=== PATIENT | female | born 1985 | race Caucasian/White ===

== ENCOUNTER → 2017-01-27 | Outpatient (REF) | payer OTHER | LOC: M LAB REF 10:12 | PROVIDERS: ATTEND Physician Assistant | DX: J02.9 Acute pharyngitis, unspecified (principal) ==

== ENCOUNTER → 2018-11-26 | Outpatient (REF) | LOC: M LAB LCGH 11:52 | PROVIDERS: ATTEND Obstetrics & Gynecology Reproductive Endocrinology | DX: Z00.00 Encounter for general adult medical examination without abnormal findings (principal) ==

== ENCOUNTER → 2018-12-11 | Outpatient (REF) | LOC: M LAB LCGH 11:05 | PROVIDERS: ATTEND Obstetrics & Gynecology Reproductive Endocrinology | DX: Z00.00 Encounter for general adult medical examination without abnormal findings (principal) ==

== ENCOUNTER → 2018-12-24 | Outpatient (REF) | LOC: M LAB LCGH 11:48 | PROVIDERS: ATTEND Obstetrics & Gynecology Reproductive Endocrinology | DX: Z79.899 Other long term (current) drug therapy (principal) ==

== ENCOUNTER → 2018-12-30 | Outpatient (REF) | LOC: M LAB LCGH 11:36 | PROVIDERS: ATTEND Obstetrics & Gynecology Reproductive Endocrinology | DX: Z00.00 Encounter for general adult medical examination without abnormal findings (principal) ==

== ENCOUNTER → 2021-07-19 | Outpatient (CLI) | payer BC, OTHER | LOC: M WHC 09:17 | PROVIDERS: ATTEND Obstetrics & Gynecology | DX: Z34.81 Encounter for supervision of other normal pregnancy, first trimester (principal); Z3A.09 9 weeks gestation of pregnancy ==

== ENCOUNTER → 2021-07-19 | Outpatient (CLI) | payer BC, OTHER ==
[2021-07-19 13:16] LABS: HEMATOCRIT 40.1 % (36.0-47.0); HEMOGLOBIN 12.8 g/dl (12.0-15.5); MEAN CORPUSCULAR HEMOGLOBIN 26.7 pg (27.0-33.0); MEAN CORPUSCULAR HGB CONC 31.9 g/dl (32.0-36.5); MEAN CORPUSCULAR VOLUME 83.5 fl (80.0-96.0); PLATELET COUNT, AUTOMATED 244 10^3/uL (150-450)
[2021-07-19 14:03] LABS: ALT/SGPT 27 U/L (12-78); BILIRUBIN,TOTAL 0.5 MG/DL (0.2-1.0); BLOOD UREA NITROGEN 8 MG/DL (7-18); CALCIUM LEVEL 8.9 MG/DL (8.5-10.1); CARBON DIOXIDE LEVEL 25 MEQ/L (21-32); CHLORIDE LEVEL 103 MEQ/L (98-107); GLOMERULAR FILTRATION RATE > 60.0 (>60); GLUCOSE, FASTING 161 MG/DL (70-100); POTASSIUM SERUM 3.7 MEQ/L (3.5-5.1); SODIUM LEVEL 136 MEQ/L (136-145); TOTAL PROTEIN 6.6 GM/DL (6.4-8.2)
[2021-07-19 14:04] LABS: ALBUMIN 3.1 GM/DL (3.2-5.2); GLUCOSE CHALLENGE TEST 1 HOUR 161 MG/DL (LESS THAN 140)
[2021-07-19 14:15] LABS: CREATININE,RANDOM URINE < 13.0 MG/DL; TOTAL PROTEIN,RANDOM URINE 8.7 MG/DL (0.0-12.0)
[2021-07-19 14:30] LABS: HEPATITIS C VIRUS ABY INDEX 0.2 INDEX (<0.8); HIV 1&2 SCREEN CENTAUR NEGATIVE (NEGATIVE)
[2021-07-19 14:47] LABS: GC DNA AMPLIFICATION NEGATIVE (NEGATIVE)
== END ==
LOC: M PLALAB 10:06
PROVIDERS: ATTEND Obstetrics & Gynecology
DX: Z34.81 Encounter for supervision of other normal pregnancy, first trimester (principal)

== ENCOUNTER → 2021-07-31 | Outpatient (CLI) | payer BC, OTHER | LOC: M LAB 08:18 | PROVIDERS: ATTEND Obstetrics & Gynecology | DX: O99.810 Abnormal glucose complicating pregnancy (principal) ==

== ENCOUNTER → 2021-08-04 | Outpatient (CLI) | payer BC, OTHER | LOC: M PLALAB 14:58 | PROVIDERS: ATTEND Obstetrics & Gynecology | DX: Z34.81 Encounter for supervision of other normal pregnancy, first trimester (principal); Z3A.00 Weeks of gestation of pregnancy not specified ==

== ENCOUNTER → 2021-08-21 | Outpatient (CLI) | payer BC, OTHER | LOC: M WHC 15:56 | PROVIDERS: ATTEND Advanced Practice Midwife | DX: Z34.92 Encounter for supervision of normal pregnancy, unspecified, second trimester (principal) ==

== ENCOUNTER → 2021-08-24 | Outpatient (CLI) | payer BC, OTHER | LOC: M PLALAB 10:28 | PROVIDERS: ATTEND Advanced Practice Midwife | DX: Z34.92 Encounter for supervision of normal pregnancy, unspecified, second trimester (principal) ==

== ENCOUNTER → 2021-09-11 | Outpatient (CLI) | payer BC, OTHER | LOC: M PLALAB 14:35 | PROVIDERS: ATTEND Obstetrics & Gynecology | DX: Z34.82 Encounter for supervision of other normal pregnancy, second trimester (principal) ==

== ENCOUNTER → 2021-09-15 | Outpatient (CLI) | payer BC, OTHER | LOC: M WHC 14:56 | PROVIDERS: ATTEND Advanced Practice Midwife | DX: Z34.92 Encounter for supervision of normal pregnancy, unspecified, second trimester (principal) ==

== ENCOUNTER → 2021-10-18 | Outpatient (CLI) | payer BC, OTHER | LOC: M WHC 14:12 | PROVIDERS: ATTEND Obstetrics & Gynecology | DX: O24.312 Unspecified pre-existing diabetes mellitus in pregnancy, second trimester (principal) ==

== ENCOUNTER → 2021-11-01 | Outpatient (CLI) | payer BC, OTHER ==
[2021-11-01 15:58] LABS: ALBUMIN 2.7 GM/DL (3.2-5.2); ALT/SGPT 16 U/L (12-78); BILIRUBIN,TOTAL 0.3 MG/DL (0.2-1.0); BLOOD UREA NITROGEN 11 MG/DL (7-18); CALCIUM LEVEL 9.2 MG/DL (8.5-10.1); CARBON DIOXIDE LEVEL 26 MEQ/L (21-32); CHLORIDE LEVEL 104 MEQ/L (98-107); CREATININE FOR GFR 0.56 MG/DL (0.55-1.30); GLOMERULAR FILTRATION RATE > 60.0 (>60); GLUCOSE, FASTING 100 MG/DL (70-100); HEMATOCRIT 37.2 % (36.0-47.0); HEMOGLOBIN 11.9 g/dl (12.0-15.5); MEAN CORPUSCULAR HEMOGLOBIN 27.2 pg (27.0-33.0); MEAN CORPUSCULAR VOLUME 84.9 fl (80.0-96.0); PLATELET COUNT, AUTOMATED 249 10^3/uL (150-450); POTASSIUM SERUM 3.7 MEQ/L (3.5-5.1); RED BLOOD COUNT 4.38 10^6/uL (4.00-5.40); SODIUM LEVEL 137 MEQ/L (136-145); TOTAL PROTEIN 6.4 GM/DL (6.4-8.2); WHITE BLOOD COUNT 16.2 10^3/uL (4.0-10.0)
[2021-11-01 16:22] LABS: TOTAL PROTEIN,RANDOM URINE 23.6 MG/DL (0.0-12.0)
[2021-11-01 17:26] LABS: GC DNA AMPLIFICATION NEGATIVE (NEGATIVE)
== END ==
LOC: M PLALAB 13:43
PROVIDERS: ATTEND Obstetrics & Gynecology
DX: O24.312 Unspecified pre-existing diabetes mellitus in pregnancy, second trimester (principal); O09.292 Supervision of pregnancy with other poor reproductive or obstetric history, second trimester; O10.012 Pre-existing essential hypertension complicating pregnancy, second trimester; O99.212 Obesity complicating pregnancy, second trimester; E66.9 Obesity, unspecified; O34.219 Maternal care for unspecified type scar from previous cesarean delivery; Z3A.22 22 weeks gestation of pregnancy

== ENCOUNTER → 2021-11-01 | Outpatient (CLI) | payer BC, OTHER ==
[2021-11-01 17:33] LABS: HEMOGLOBIN A1c 5.3 %
== END ==
LOC: M PLALAB 13:41
PROVIDERS: ATTEND Obstetrics & Gynecology
DX: O24.312 Unspecified pre-existing diabetes mellitus in pregnancy, second trimester (principal); Z3A.22 22 weeks gestation of pregnancy

== ENCOUNTER → 2021-11-22 | Outpatient (CLI) | payer BC, OTHER | LOC: M WHC 08:05 | PROVIDERS: ATTEND Obstetrics & Gynecology | DX: Z36.2 Encounter for other antenatal screening follow-up (principal); Z3A.00 Weeks of gestation of pregnancy not specified ==

== ENCOUNTER → 2021-12-01 | Outpatient (CLI) | payer BC, OTHER | LOC: M WHC 13:46 | PROVIDERS: ATTEND Obstetrics & Gynecology | DX: Z36.89 Encounter for other specified antenatal screening (principal); Z3A.27 27 weeks gestation of pregnancy ==

== ENCOUNTER → 2021-12-06 | Outpatient (CLI) | payer BC, OTHER | LOC: M WHC 13:22 | PROVIDERS: ATTEND Obstetrics & Gynecology | DX: O24.419 Gestational diabetes mellitus in pregnancy, unspecified control (principal); Z3A.27 27 weeks gestation of pregnancy ==

== ENCOUNTER → 2021-12-14 | Outpatient (CLI) | payer BC, OTHER | LOC: M WHC 11:59 | PROVIDERS: ATTEND Obstetrics & Gynecology | DX: O24.312 Unspecified pre-existing diabetes mellitus in pregnancy, second trimester (principal) ==

== ENCOUNTER → 2021-12-22 | Outpatient (CLI) | payer BC, OTHER | LOC: M WHC 09:52 | PROVIDERS: ATTEND Obstetrics & Gynecology | DX: O24.312 Unspecified pre-existing diabetes mellitus in pregnancy, second trimester (principal) ==

== ENCOUNTER → 2022-01-02 | Outpatient (CLI) | payer BC, OTHER | LOC: M WHC 13:28 | PROVIDERS: ATTEND Obstetrics & Gynecology | DX: O24.312 Unspecified pre-existing diabetes mellitus in pregnancy, second trimester (principal) ==

== ENCOUNTER → 2022-01-08 | Outpatient (CLI) | payer BC, OTHER | LOC: M WHC 11:09 | PROVIDERS: ATTEND Obstetrics & Gynecology | DX: O24.313 Unspecified pre-existing diabetes mellitus in pregnancy, third trimester (principal) ==

== ENCOUNTER → 2022-01-08 | Outpatient (CLI) | payer BC, OTHER | LOC: M WHC 10:53 | PROVIDERS: ATTEND Obstetrics & Gynecology | DX: O24.313 Unspecified pre-existing diabetes mellitus in pregnancy, third trimester (principal); Z3A.35 35 weeks gestation of pregnancy ==

== ENCOUNTER → 2022-01-08 | Outpatient (REF) | payer BC, OTHER | LOC: M SFHCWAGY 16:51 | PROVIDERS: ATTEND Obstetrics & Gynecology | DX: O24.313 Unspecified pre-existing diabetes mellitus in pregnancy, third trimester (principal) ==

== ENCOUNTER → 2022-01-16 | Outpatient (CLI) | payer BC, OTHER ==
[~2022-01-16] MED LIST: METF10004 PO; NOVO1INJ18 SC; PREN1CHW PO; ZYRT10TA12 PO
== END ==
LOC: M WHC 12:51
PROVIDERS: ATTEND Obstetrics & Gynecology
DX: O24.312 Unspecified pre-existing diabetes mellitus in pregnancy, second trimester (principal)

== ENCOUNTER → 2022-01-26 | Outpatient (CLI) | payer BC, OTHER ==
[~2022-01-26] MED LIST changes: +COLA100C5 PO; +IBUP80TA PO; +Insulin Human Nph SC; +PERCOCET PO; +TUMS750C22 PO
== END ==
LOC: M WHC 13:49
PROVIDERS: ATTEND Obstetrics & Gynecology
DX: O24.312 Unspecified pre-existing diabetes mellitus in pregnancy, second trimester (principal); Z3A.38 38 weeks gestation of pregnancy

== ENCOUNTER → 2022-01-26 | Outpatient (CLI) | payer BC, OTHER ==
[2022-01-26 11:56] LABS: BLOOD UREA NITROGEN 17 MG/DL (7-18); CALCIUM LEVEL 10.2 MG/DL (8.5-10.1); CARBON DIOXIDE LEVEL 24 MEQ/L (21-32); CHLORIDE LEVEL 108 MEQ/L (98-107); CREATININE FOR GFR 0.68 MG/DL (0.55-1.30); GLOMERULAR FILTRATION RATE > 60.0 (>60); GLUCOSE, FASTING 129 MG/DL (70-100); POTASSIUM SERUM 3.8 MEQ/L (3.5-5.1); SODIUM LEVEL 140 MEQ/L (136-145)
== END ==
LOC: M EKG 10:13
PROVIDERS: ATTEND Anesthesiology
DX: E11.9 Type 2 diabetes mellitus without complications (principal); E66.9 Obesity, unspecified

== ENCOUNTER 2022-01-29 07:24 | Inpatient (IN) | payer BC, OTHER ==
[~2022-01-29] VITALS: Ht 160 cm; Wt 119.1 kg
[2022-01-29] VITALS (8 sets, daily range): BP systolic 97–122; BP diastolic 59–71
[~2022-01-29 07:24] MED LIST changes: -COLA100C5 PO; -IBUP80TA PO; -Insulin Human Nph SC; -PERCOCET PO; -TUMS750C22 PO
[2022-01-29] MEDS ORDERED: LR 1,000 ML IV SCH ×3 (08:20→11:40)
[2022-01-29] MEDS ORDERED: ceFAZolin SOD 1 GM in D5W MINI-BAG PLUS 50 ML IV ONE (08:20)
[2022-01-29] MEDS ORDERED: BICITRA 30ML SOLN UDC PO ONE (08:20)
[2022-01-29] MEDS ORDERED: LR 1,000 ML IV ONE (08:20)
[2022-01-29] MEDS ORDERED: ceFAZolin SOD 2 GM in IV 1 EA IV ONE (08:20)
[2022-01-29] MEDS ORDERED: TUMS750C22 PO (08:24)
[2022-01-29] MEDS ORDERED: HOME MED LIST COMPLETE! XX SCH (08:25)
[2022-01-29 08:59] LABS: HEMATOCRIT 35.6 % (36.0-47.0); HEMOGLOBIN 11.1 g/dl (12.0-15.5); MEAN CORPUSCULAR HEMOGLOBIN 24.9 pg (27.0-33.0); MEAN CORPUSCULAR HGB CONC 31.2 g/dl (32.0-36.5); MEAN CORPUSCULAR VOLUME 79.8 fl (80.0-96.0); PLATELET COUNT, AUTOMATED 186 10^3/uL (150-450); RED BLOOD COUNT 4.46 10^6/uL (4.00-5.40)
[2022-01-29] MEDS ORDERED: OXYTOCIN 30 UNITS IN 0.9% NaCl 500ML IV BAG (J2590) As Ordered ONE ×2 (09:24→11:54)
[2022-01-29] MEDS ORDERED: MORPHINE PRES-FREE INJ 10 MG/10 ML VIAL As Ordered ONE (09:24)
[2022-01-29] MEDS ORDERED: ONDANSETRON 4MG 2ML VIAL As Ordered ONE ×2 (09:29→12:57)
[2022-01-29] MEDS ORDERED: dexameTHASONE 4 MG/ML 1ML VIAL (J1100 PER 1MG) As Ordered ONE (09:29)
[2022-01-29] MEDS ORDERED: KETOROLAC 60MG 2ML VIAL As Ordered ONE (10:49)
[2022-01-29] MEDS ORDERED: ePHEDrine SULFATE 25 MG/5 ML(5MG/ML) SYRINGE As Ordered ONE (10:54)
[2022-01-29] MEDS ORDERED: PHENYLephrine 500MCG 5ML (100MCG/ML) SYRINGE As Ordered ONE (10:54)
[2022-01-29 11:09] LABS: CORD GAS ABE A -1.4; CORD GAS O2 SAT A 43.3 %; CORD GAS PCO2 A 55.4 mmHg; CORD GAS PH A 7.29 UNITS; CORD GAS PO2 A 20.8 mmHg; CORD GAS TCO2 A 27.7 MEQ/L
[2022-01-29 11:11] LABS: CORD GAS HCO3 V 22.7 MEQ/L; CORD GAS O2 SAT V 86.5 %; CORD GAS PCO2 V 42.7 mmHg; CORD GAS PH V 7.343 UNITS; CORD GAS PO2 V 43.9 mmHg; CORD GAS SBC V 21.7 MEQ/L
[2022-01-29] MEDS ORDERED: MORPHINE 4 MG/ML 1ML VIAL/SYRINGE IV PRN (11:30)
[2022-01-29] MEDS ORDERED: RHOGAM 300 MCG (1500 IU) INJ (J2790) IM SCH (11:30)
[2022-01-29] MEDS ORDERED: OXYTOCIN DRIP 30 UNITS in IV 1 EA IV SCH (11:30)
[2022-01-29] MEDS ORDERED: KETOROLAC 30 MG/ML 1ML VIAL IV SCH (11:30)
[2022-01-29] MEDS ORDERED: SIMETHICONE 80MG CHEW TAB PO PRN (11:30)
[2022-01-29] MEDS ORDERED: PERCOCET 5MG/325MG TAB PO PRN ×2 (11:30)
[2022-01-29] MEDS ORDERED: METOCLOPRAMIDE INJ 10MG/2ML VIAL (J2765 PER 1) IV PRN (11:40)
[2022-01-29] MEDS ORDERED: oxyCODONE 5MG TAB PO PRN (11:40)
[2022-01-29] MEDS ORDERED: **NOTE PATIENT COMMENT** MISC XX SCH (11:40)
[2022-01-29] MEDS ORDERED: diphenhydrAMINE 50MG/ML VIAL (J1200) IV PRN (11:40)
[2022-01-29] MEDS ORDERED: ONDANSETRON 4MG 2ML VIAL IV PRN (11:40)
[2022-01-29] MEDS ORDERED: fentaNYL 100 MCG/2 ML INJECTION IV PRN (11:40)
[2022-01-29] MEDS ORDERED: NALOXONE INJ 0.4MG/1ML VIAL (J2310 PER 1MG) IV PRN ×2 (11:40)
[2022-01-29] MEDS ORDERED: COLA100C5 PO (11:41)
[2022-01-29] MEDS ORDERED: Insulin Human Nph SC (11:41)
[2022-01-29] MEDS ORDERED: PERCOCET PO (11:41)
[2022-01-29] MEDS ORDERED: IBUP80TA PO (11:41)
[2022-01-29] MEDS: SLF 3 ML SYR IV SCH (16:32)
[2022-01-29] MEDS: KETOROLAC 30 MG/ML 1ML VIAL IV SCH ×2 (17:31→23:50)
[2022-01-29] MEDS ORDERED: HumuLIN N INSULIN (NovoLIN N) PER UNIT SC SCH (19:00)
[2022-01-29] MEDS: DOCUSATE SODIUM 100MG CAPSULE PO SCH (20:35)
[2022-01-29] MEDS: ENOXAPARIN 30MG/0.3ML SYRINGE (J1650 PER 10MG) SC SCH (20:36)
[2022-01-30 02:00] VITALS: BP 118/72
[2022-01-30] MEDS: SLF 3 ML SYR IV SCH ×2 (03:40→08:31)
[2022-01-30] MEDS: KETOROLAC 30 MG/ML 1ML VIAL IV SCH (05:29)
[2022-01-30 05:58] VITALS: BP 112/63
[2022-01-30 08:30] LABS: HEMATOCRIT 30.2 % (36.0-47.0); HEMOGLOBIN 9.6 g/dl (12.0-15.5); MEAN CORPUSCULAR HEMOGLOBIN 25.5 pg (27.0-33.0); MEAN CORPUSCULAR HGB CONC 31.8 g/dl (32.0-36.5); MEAN CORPUSCULAR VOLUME 80.1 fl (80.0-96.0); PLATELET COUNT, AUTOMATED 195 10^3/uL (150-450); RED BLOOD COUNT 3.77 10^6/uL (4.00-5.40); WHITE BLOOD COUNT 18.6 10^3/uL (4.0-10.0)
[2022-01-30] MEDS: DOCUSATE SODIUM 100MG CAPSULE PO SCH ×2 (08:30→20:32)
[2022-01-30] MEDS: PRENATAL VITAMINS CHEWABLE TABLET PO SCH (08:30)
[2022-01-30] MEDS: ENOXAPARIN 30MG/0.3ML SYRINGE (J1650 PER 10MG) SC SCH ×2 (08:31→20:32)
[2022-01-30 09:24] LABS: CREATININE FOR GFR 0.68 MG/DL (0.55-1.30); GLOMERULAR FILTRATION RATE > 60.0 (>60)
[2022-01-30 09:43] VITALS: BP 123/67
[2022-01-30 14:00] VITALS: BP 108/55
[2022-01-30] MEDS: IBUPROFEN 800 MG TAB PO SCH ×2 (14:11→20:33)
[2022-01-30] MEDS: ACETAMINOPHEN 500 MG TAB PO PRN (16:07)
[2022-01-30 18:06] VITALS: BP 117/58
[2022-01-30 22:00] VITALS: BP 118/68
[2022-01-31] MEDS: ACETAMINOPHEN 500 MG TAB PO PRN (00:42)
[2022-01-31 02:00] VITALS: BP 131/62
[2022-01-31] MEDS: IBUPROFEN 800 MG TAB PO SCH ×2 (05:46→14:13)
[2022-01-31 06:00] VITALS: BP 124/64
[2022-01-31] MEDS: PRENATAL VITAMINS CHEWABLE TABLET PO SCH (08:23)
[2022-01-31] MEDS: DOCUSATE SODIUM 100MG CAPSULE PO SCH (08:23)
[2022-01-31] MEDS: ENOXAPARIN 30MG/0.3ML SYRINGE (J1650 PER 10MG) SC SCH (08:24)
[2022-01-31] MEDS ORDERED: MEASLES,MUMPS,RUBELLA VACCINE INJ (MMR-II) (90707) SC.IMMUN ONE (09:00)
[2022-01-31] MEDS ORDERED: INFLUENZA QUADRIVALENT PF VACCINE 0.5ML SYRINGE IM.IMMUN ONE (09:00)
[2022-01-31 10:00] VITALS: BP_SYST 107; BP_SYST 139; BP_DIAS 72; BP_DIAS 73
== END 2022-01-31 15:43 | disposition home or self-care (01) | DRG 540 ==
LOC: M LDI 07:24 → M OBS 13:30 → UNDODISIN 01-31 14:06
PROVIDERS: ADMIT Obstetrics & Gynecology; ATTEND Obstetrics & Gynecology
PROC: 10D00Z1 Extraction of Products of Conception, Low, Open Approach (ICD-10-PCS; principal; 2022-01-29 09:30)
DX: O34.211 Maternal care for low transverse scar from previous cesarean delivery (principal); O10.02 Pre-existing essential hypertension complicating childbirth; O24.424 Gestational diabetes mellitus in childbirth, insulin controlled; O99.214 Obesity complicating childbirth; E66.9 Obesity, unspecified; Z3A.38 38 weeks gestation of pregnancy; Z79.4 Long term (current) use of insulin; Z37.0 Single live birth

== ENCOUNTER → 2022-09-26 | Outpatient (REF) | payer BC, OTHER ==
[~2022-09-26] MED LIST changes: +COLA100C5 PO; +IBUP80TA PO; +Insulin Human Nph SC; +PERCOCET PO; +TUMS750C22 PO
== END ==
LOC: M SFHCWAGY 18:06
PROVIDERS: ATTEND Obstetrics & Gynecology
DX: Z12.4 Encounter for screening for malignant neoplasm of cervix (principal)